=== PATIENT | female | born 1990 | race Caucasian/White ===

== ENCOUNTER 2018-04-12 12:16 | Emergency (ER) | payer MEDICARE, OTHER ==
[2018-04-12 12:42] VITALS: BP 110/72; PULSE 109; RESP 18; TEMP 98
--- NOTE | 2018-04-12 13:01 | ED ---
URI HPI - General Chief Complaint: Upper Respiratory Infection Stated Complaint: congestion Time Seen by Provider: 04/12/18 12:48 Source: patient, RN notes reviewed Mode of arrival: ambulatory Limitations: no limitations - History of Present Illness Initial Comments: 27 show female sent emergency Department chief complaint of cough and cold-like symptoms. Patient states she has been sick for last 4 days. Patient states she has severe sinus congestion pressure, right ear pain. Patient states she's tried no [id number] cough and cold meds. Patient states that she did have a cough initially but that has resolved. Denies any chest pain or shortness breath. Patient also is requesting a test time. She states that she is late for her menstrual cycle. - Related Data Home Medications Medication Instructions Recorded Confirmed ALPRAZolam [Xanax] 1 mg PO QAM 11/11/14 04/29/15 Previous Rx's Medication Instructions Recorded HYDROcodone/APAP 7.5-325MG [[place] 1 each PO Q4H PRN #30 tab 04/30/15 7.5-325] HYDROcodone/APAP 5-325MG [[place] 1 - 2 tab PO Q6HR PRN #20 tab 02/28/16 5-325] Penicillin V Potassium [Pen Vee K] 500 mg PO QID #28 tab 02/28/16 Amoxicillin/Potassium Clav 1 tab PO Q12HR #20 tab 04/12/18 [Augmentin 875-125 Tablet] Allergies Allergy/AdvReac Type Severity Reaction Status Date / Time No Known Allergies Allergy Verified 04/12/18 12:42 Review of Systems ROS Statement: Those systems with pertinent positive or pertinent negative responses have been documented in the HPI. ROS Other: All systems not noted in ROS Statement are negative. Past Medical History Past Medical History: No Reported History Additional Past Medical History / Comment(s): Gallstones add History of Any Multi-Drug Resistant Organisms: None Reported Past Surgical History: Section, Cholecystectomy Additional Past Surgical History / Comment(s): ear surgery Past Psychological History: ADD/ADHD, Depression Smoking Status: Current every day smoker Past Alcohol Use History: None Reported Past Drug Use History: Marijuana, Prescription Drug Abuse General Exam Limitations: no limitations General appearance: alert, in no apparent distress Head exam: Present: atraumatic, normocephalic, normal inspection Eye exam: Present: normal appearance, PERRL, EOMI. Absent: scleral icterus, conjunctival injection, periorbital swelling ENT exam: Present: mucous membranes moist, TM's normal bilaterally, normal external ear exam, other (Sinus pressure). Absent: normal oropharynx ( Postnasal drainage) Neck exam: Present: normal inspection, full ROM. Absent: tenderness, meningismus, lymphadenopathy Respiratory exam: Present: normal lung sounds bilaterally. Absent: respiratory distress, wheezes, rales, rhonchi, stridor Cardiovascular Exam: Present: regular rate, normal rhythm, normal heart sounds. Absent: systolic murmur, diastolic murmur, rubs, gallop, clicks GI/Abdominal exam: Present: soft, normal bowel sounds. Absent: distended, tenderness, guarding, rebound, rigid Back exam: Absent: CVA tenderness (R), CVA tenderness (L) Skin exam: Present: warm, dry, intact, normal color. Absent: rash Course Vital Signs 04/12/18 12:40 Temperature 98.0 F Pulse Rate 109 H Respiratory 18 Rate Blood Pressure 110/72 O2 Sat by Pulse 96 Oximetry Medical Decision Making - Medical Decision Making 27 show female presented from for cold-like symptoms. Patient also requesting urinary test. test is negative this time urinalysis unremarkable. Patient treated for acute sinusitis - Lab Data Lab Results 04/12/18 04/12/18 Range/Units 13:00 13:00 Urine Color Yellow Urine Appearance Clear (Clear) Urine pH 6.0 (5.0-8.0) Ur Specific [place] 1.018 (1.001-1.035) Urine Protein Trace H (Negative) Urine Glucose (UA) Negative (Negative) Urine Ketones Trace H (Negative) Urine Blood Negative (Negative) Urine Nitrite Negative (Negative) Urine Bilirubin Negative (Negative) Urine Urobilinogen <2.0 (<2.0) mg/dL Ur Leukocyte Esterase Negative (Negative) Urine HCG, Qual Not Detected (Not Detectd) Disposition Clinical Impression: Sinusitis, examination or test, negative result Disposition: HOME SELF-CARE Condition: Stable Instructions: Upper Respiratory Infection (ED) Additional Instructions: Please return to the Emergency Department if symptoms worsen or any other concerns. Prescriptions: Amoxicillin/Potassium Clav [Augmentin 875-125 Tablet] 1 tab PO Q12HR #20 tab Is patient prescribed a controlled substance at d/c from ED?: No Referrals: Matthias Gan MD [Primary Care Provider] - 1-2 days Time of Disposition: 13:41
[2018-04-12 13:13] LABS: Appearance,Urine Clear (Clear); Bilirubin,Urine Negative (Negative); Blood,Urine Negative (Negative); Color,Urine Yellow; Glucose,Urine (UA) Negative (Negative); Ketones,Urine Trace (Negative); Leukocyte Esterase,Urine Negative (Negative); Nitrite,Urine Negative (Negative); Protein,Urine Trace (Negative); Specific Gravity,Urine 1.018 (1.001-1.035); Urobilinogen,Urine <2.0 mg/dL (<2.0)
== END 2018-04-12 13:55 | disposition home or self-care (01) ==
LOC: EC 12:16
DX: J01.90 Acute sinusitis, unspecified (principal); Z32.02 Encounter for pregnancy test, result negative; H92.01 Otalgia, right ear; F17.200 Nicotine dependence, unspecified, uncomplicated; Z79.899 Other long term (current) drug therapy; Z98.890 Other specified postprocedural states
CPT/HCPCS: 81003; 81025; 87086; 99283

== ENCOUNTER 2018-07-22 13:42 | Emergency (ER) | payer MEDICARE, OTHER ==
[2018-07-22 14:08] VITALS: BP 143/96; RESP 18; TEMP 97.7
[2018-07-22 14:43] LABS: Amorphous Sediment,Urine Many /hpf; Appearance,Urine Turbid (Clear); Bilirubin,Urine Negative (Negative); Blood,Urine Negative (Negative); Color,Urine Light Yellow; Glucose,Urine (UA) Negative (Negative); Ketones,Urine Negative (Negative); Leukocyte Esterase,Urine Negative (Negative); Nitrite,Urine Negative (Negative); Protein,Urine Negative (Negative); Specific Gravity,Urine 1.013 (1.001-1.035); Squamous Epithelial Cell,Urine 1 /hpf (0-4); Urobilinogen,Urine <2.0 mg/dL (<2.0); WBC,Urine 4 /hpf (0-5)
--- NOTE | 2018-07-22 14:58 | ED ---
General Adult HPI - General Chief complaint: Urogenital Stated complaint: STD check Time Seen by Provider: 07/22/18 14:04 Source: patient, RN notes reviewed Mode of arrival: ambulatory Limitations: no limitations - History of Present Illness Initial comments: 27-year-old female since to the emergency department for STD testing. Patient states she was positive for gonorrhea one month ago and was treated with "a shot and 2 pills." Patient states she would like to be retested to make sure that it has resolved. Patient denies any vaginal discharge. She denies any pelvic pain. She denies any symptoms whatsoever. Patient states her partner was treated as well. Patient denies any chance of . She does states she is trying to get .Patient has no other complaints at this time including shortness of breath, chest pain, abdominal pain, nausea or vomiting, headache, or visual changes. - Related Data Home Medications Medication Instructions Recorded Confirmed QUEtiapine [SEROquel] 100 mg PO HS 07/22/18 07/22/18 Allergies Allergy/AdvReac Type Severity Reaction Status Date / Time No Known Allergies Allergy Verified 07/22/18 14:51 Review of Systems ROS Statement: Those systems with pertinent positive or pertinent negative responses have been documented in the HPI. ROS Other: All systems not noted in ROS Statement are negative. Past Medical History Past Medical History: No Reported History Additional Past Medical History / Comment(s): Gallstones History of Any Multi-Drug Resistant Organisms: None Reported Past Surgical History: Section, Cholecystectomy Additional Past Surgical History / Comment(s): ear surgery Past Psychological History: ADD/ADHD, Depression Smoking Status: Current every day smoker Past Alcohol Use History: None Reported Past Drug Use History: Marijuana, Prescription Drug Abuse General Exam Limitations: no limitations General appearance: alert, in no apparent distress Head exam: Present: atraumatic, normocephalic, normal inspection Eye exam: Present: normal appearance, PERRL, EOMI. Absent: scleral icterus, conjunctival injection, periorbital swelling ENT exam: Present: normal exam, mucous membranes moist Neck exam: Present: normal inspection. Absent: tenderness, meningismus, lymphadenopathy Respiratory exam: Present: normal lung sounds bilaterally. Absent: respiratory distress, wheezes, rales, rhonchi, stridor Cardiovascular Exam: Present: regular rate, normal rhythm, normal heart sounds. Absent: systolic murmur, diastolic murmur, rubs, gallop, clicks GI/Abdominal exam: Present: soft, normal bowel sounds. Absent: distended, tenderness (No tenderness whatsoever in the abdomen including pelvic area), guarding, rebound, rigid External exam: Present: normal external exam, other (Offered clinical nutritionist, patient declined). Absent: erythema, swelling, lesions, lacerations, ecchymosis Speculum exam: Present: normal speculum exam. Absent: erythema, vaginal discharge (No significant or abnormal vaginal discharge noted), cervical discharge, vaginal bleeding, foreign body, tissue, laceration, other By manual exam: Present: normal by manual exam. Absent: cervical motion tenderness (Negative chandelier sign), adnexal tenderness (No tenderness whatsoever), adnexal mass, uterine enlargement, uterine tenderness (No tenderness whatsoever) Neurological exam: Present: alert, oriented X3, CN II-XII intact Psychiatric exam: Present: normal affect, normal mood Course Vital Signs 07/22/18 14:05 Temperature 97.7 F Pulse Rate 104 H Respiratory 18 Rate Blood Pressure 143/96 O2 Sat by Pulse 98 Oximetry Medical Decision Making - Medical Decision Making 27-year-old female presents for STD testing. Patient was treated for gonorrhea about one month ago. She would like to make sure this resolves. She has no symptoms at this time. No pelvic pain. Vitals within acceptable limits , patient is afebrile. On exam no abdominal or pelvic tenderness. Speculum exam within normal limits, no significant vaginal discharge. Negative chandelier sign. No tenderness on bimanual exam whatsoever. Patient was swabbed for gonorrhea chlamydia and Trichomonas. As patient was already treated she does not want to be treated empirically as she is not having any recurrent symptoms and partner was already treated. She will follow up for results in 2 days which was discussed with her. She will follow up with her OB/ DIABETOLOGIST as well. She will return if she has any worsening symptoms including pelvic pain or fevers. - Lab Data Lab Results 07/22/18 07/22/18 Range/Units 14:10 14:10 Urine Color Light Yellow Urine Appearance Turbid H (Clear) Urine pH 7.0 (5.0-8.0) Ur Specific [place] 1.013 (1.001-1.035) Urine Protein Negative (Negative) Urine Glucose (UA) Negative (Negative) Urine Ketones Negative (Negative) Urine Blood Negative (Negative) Urine Nitrite Negative (Negative) Urine Bilirubin Negative (Negative) Urine Urobilinogen <2.0 (<2.0) mg/dL Ur Leukocyte Esterase Negative (Negative) Urine WBC 4 (0-5) /hpf Ur Squamous Epith Cells 1 (0-4) /hpf Amorphous Sediment Many H (None) /hpf Urine HCG, Qual Not Detected (Not Detectd) Disposition Clinical Impression: H/O sexually transmitted disease Disposition: HOME SELF-CARE Condition: Good Instructions: Sexually Transmitted Diseases (ED) Additional Instructions: Please follow up on results in 2 days. Please follow-up with your BUILDING TRADES INSTRUCTOR in 1- 2 days. Return if you have any worsening symptoms. Is patient prescribed a controlled substance at d/c from ED?: No Referrals: Marquise Bass MD [Primary Care Provider] - 1-2 days Yanet Floyd MD [STAFF PHYSICIAN] - 1-2 days Time of Disposition: 14:58
[2018-07-22 15:17] VITALS: PULSE 94
[2018-07-23 14:55] LABS: C. trachomatis,PCR Negative (Neg,Equiv); Chlamydia trachomatis Source Urine
[2018-07-23 14:58] LABS: N. gonorrhoeae,PCR Negative (Neg,Equiv); Neisseria Source Urine
== END 2018-07-22 15:16 | disposition home or self-care (01) ==
LOC: EC 13:42
DX: Z11.3 Encounter for screening for infections with a predominantly sexual mode of transmission (principal); F32.9 Major depressive disorder, single episode, unspecified; F17.200 Nicotine dependence, unspecified, uncomplicated; Z79.899 Other long term (current) drug therapy; Z86.19 Personal history of other infectious and parasitic diseases
CPT/HCPCS: 81001; 81025; 87086; 87491; 87591; 87808; 99283